=== PATIENT | female | born 1990 | race Caucasian/White ===

== ENCOUNTER 2016-09-21 16:12 | Emergency (ER) | payer OTHER, MEDICAID ==
[~2016-09-21] VITALS: Ht 177.8 cm; Wt 88.5 kg
[~2016-09-21 16:12] MED LIST: ARPZ10T PO; BCP; BSP5T PO; Birth Control Pill; CEPH500C PO; CETI10TA17 PO; CPR500T PO; DCS100C PO; DICY20TA10; DICY20TA57 PO; ESCI20TA2 PO; FERR-47 PO; HYDR-3812 PO; HYDR-757 PO; IBUP-1773 PO; METO-354 PO; OMEP20CA12 PO; ONDA-42 PO; ONDA4TAB8 PO; ONDA8TAB6 PO; ONDA8TAB9 PO; OXYC1TAB87 PO; PANT20TA2 PO; PANT40TA PO; PANT40TA3 PO; PHEN1SUP3 PR; PNV91TAB3 PO; PREN1TAB39 PO; PREN1TAB71 PO; SERT100T PO; SERT50TA PO; TERB250T10; Vitamin B6 PO; ambilify PO; birth control pill
[2016-09-21] MEDS ORDERED: fentaNYL INJECTION 100 MCG/2 ML AMP ONE (16:13)
--- OUTSIDE RECORDS SUMMARY | 2016-09-21 16:17 | XMS REPORT ---
Author Author YESSENIA ROSADO Organization [employer] Address Unknown Phone Unavailable Care Team Providers Care Payable Representative Name Role Phone YESSENIA ROSADO CP Unavailable Allergies No Known Allergies Problems No Known Problems Medications No Known Medications Results No Known Results Summary Purpose [employer]ClinicalWorks Submission
--- OUTSIDE RECORDS SUMMARY | 2016-09-21 16:17 | XMS REPORT ---
Author Author FADI HALL [facility] eClinicalWorks Address Unknown Phone Unavailable Care Team Providers Care Dry Wall Installations Mechanic Name Role Phone AFDI HALL Unavailable Allergies No Known Allergies Problems Problem Type Condition Code Onset Dates Condition Status Assessment Bipolar disorder with moderate depression F31.32 Active Assessment Mood disorder F39 Active Problem Bipolar 2 disorder F31.81 Active Medications No Known Medications Procedures Procedure Coding System Code Date Psych diagnostic evaluation, new patient CPT-4 41925 Dec 09, 2014 Results No Known Results Summary Purpose eClinicalWorks Submission
--- OUTSIDE RECORDS SUMMARY | 2016-09-21 16:17 | XMS REPORT ---
Author Author LIZ SEQUEIRA Organization [employer] Address Unknown Phone Unavailable Care Team Providers Care Chemical Instrumentation Officer Name Role Phone LIZ SEQUEIRA CP Unavailable Allergies, Adverse Reactions, Alerts Substance Reaction Event Type NyQuil hives Drug Allergy Problems Problem Type Condition Code Onset Dates Condition Status Assessment Bipolar 1 disorder with moderate bree F31.12 Active Problem Bipolar 2 disorder F31.81 Active Medications Medication Code System Code Instructions Start Date End Date Status Dosage Lamisil [facility] [address]-55 250 MG Orally Once a day 1 tablet Ibuprofen [facility] [address]-40 200 MG Orally every 6 hrs 1 tablet as needed Dicyclomine HCl [facility] [address]-21 10 MG Orally 3 times a day 1 capsule Zofran ODT [facility] [address]-59 4 MG Orally every 8 hrs July 13, 2014 1 tablet on the tongue and allow to dissolve Promethazine HCl [facility] [address]-36 25 MG Orally every 6 hrs prn Oct 22, 2014 1 tablet as needed Hildebran Carbonate ER [facility] [address]-96 300 MG Orally Once a day at hs Dec 04, 2014 1 tablet Pantoprazole Sodium [facility] [address]-02 20 MG Orally twice a day 1 tablets Seroquel XR [facility] [address]-96 50 MG Orally Once a day at HS Dec 04, 2014 1 tablet in the evening Procedures Procedure Coding System Code Date ASSAY OF FREE THYROXINE CPT-4 20493 Dec 04, 2014 Psych diagnostic evaluation w/medical services, established patient CPT-4 24681 Dec 04, 2014 ASSAY THYROID STIM HORMONE CPT-4 89830 Dec 04, 2014 URINE TEST CPT-4 30680 Dec 04, 2014 Vital Signs Date/Time: Dec 04, 2014 Temperature 98.9 F Weight 209.1 lbs Height 70 in BMI 30.00 Index Blood Pressure Diastolic 80 mmHg Blood Pressure Systolic 120 mmHg Cardiac Monitoring Heart Rate 84 bpm Results No Known Results Summary Purpose eClinicalWorks Submission
--- OUTSIDE RECORDS SUMMARY | 2016-09-21 16:17 | XMS REPORT ---
Author Author NICHELLE DA SILVA [facility] eClinicalWorks Address Unknown Phone Unavailable Care Team Providers Care Sports Journalist Name Role Phone NICHELLE DA SILVA CP Unavailable Allergies No Known Allergies Problems Problem Type Condition Code Onset Dates Condition Status Assessment Bipolar 2 disorder F31.81 Active Problem Bipolar 2 disorder F31.81 Active Medications No Known Medications Procedures Procedure Coding System Code Date Psych diagnostic evaluation, established patient CPT-4 99028 Dec 02, 2014 Results No Known Results Summary Purpose [employer] Submission
--- OUTSIDE RECORDS SUMMARY | 2016-09-21 16:17 | XMS REPORT ---
Author Author YESSENIA ROSADO [facility] eClinicalWorks Address Unknown Phone Unavailable Care Team Providers Care Packing Line Worker Name Role Phone YESSENIA ROSADO CP Unavailable Allergies, Adverse Reactions, Alerts Substance Reaction Event Type NyQuil hives Drug Allergy Problems Problem Type Condition Code Onset Dates Condition Status Problem Nausea R11.0 Active Problem Bipolar 2 disorder F31.81 Active Problem Z33.1 Active Assessment Z33.1 Active Assessment Nausea R11.0 Active Medications Medication Code System Code Instructions Start Date End Date Status Dosage Zofran [facility] [address]-71 8 MG Orally q 12 hours prn nausea Jan 05, 2015 1 tablet Procedures Procedure Coding System Code Date Office Visit, Est Pt., Level 3 CPT-4 12912 Jan 05, 2015 Vital Signs Date/Time: Jan 05, 2015 Temperature 98.1 F Weight 203.0 lbs Height 70 in BMI 29.12 Index Blood Pressure Diastolic 62 mmHg Blood Pressure Systolic 106 mmHg Cardiac Monitoring Heart Rate 88 bpm Results No Known Results Summary Purpose eClinicalWorks Submission
--- OUTSIDE RECORDS SUMMARY | 2016-09-21 16:18 | XMS REPORT ---
Author Author YESSENIA ROSADO [facility] eClinicalWorks Address Unknown Phone Unavailable Care Team Providers Care Data Management Name Role Phone YESSENIA ROSADO CP Unavailable Allergies, Adverse Reactions, Alerts Substance Reaction Event Type NyQuil hives Drug Allergy Problems Problem Type Condition ICD-9 Code Onset Dates Condition Status Assessment Otitis media of both ears 382.9 Active Medications Medication Code System Code Instructions Start Date End Date Status Dosage Ibuprofen [facility] [address]-81 200 MG Orally every 6 hrs 1 tablet as needed Lamisil [facility] [address]-00 250 MG Orally Once a day 1 tablet Pantoprazole Sodium [facility] [address]-35 20 MG Orally twice a day 1 tablets Cephalexin [facility] [address]-32 500 MG Orally 3 times a day Sep 23, 2014 Oct 03, 2014 1 capsule Procedures Procedure Coding System Code Date Office Visit, Est Pt., Level 3 CPT-4 17790 Sep 23, 2014 Vital Signs Date/Time: Sep 23, 2014 Temperature 99.1 F Weight 202.7 lbs Height 70 in BMI 29.08 Index Blood Pressure Diastolic 76 mmHg Blood Pressure Systolic 104 mmHg Cardiac Monitoring Heart Rate 76 bpm Results No Known Results Summary Purpose [employer]ClinicalWorks Submission
--- OUTSIDE RECORDS SUMMARY | 2016-09-21 16:18 | XMS REPORT ---
Author Author YSESENIA ROSADO [facility] Address [address] [place] [address] Care Team Providers Care Human Resources Trainer Name Role Phone YESSENIA ROSADO Unavailable PROBLEMS Type Condition ICD9-CM Code [id number] Code Onset Dates Condition Status SNOMED Code Problem Z33.1 Active 44637327 Problem Nausea R11.0 Active 473760155 Problem Bipolar 2 disorder F31.81 Active 28478596 ALLERGIES No Known Allergies SOCIAL HISTORY No smoking Hx information available PLAN OF CARE VITAL SIGNS MEDICATIONS No Known Medications RESULTS No Results PROCEDURES Procedure Date Ordered Related Diagnosis Body Site FLUARIX QUAD P-FREE 3 AND UP .50 2015Dec 13, 2015 SINGLE IMMUNIZATION ADMIN Dec 13, 2015 IMMUNIZATIONS Vaccine Route Administration Date Status FLUARIX QUAD P-FREE 3 AND UP .50 2015 IM Intramuscular Dec 13, 2015 Administered
--- OUTSIDE RECORDS SUMMARY | 2016-09-21 16:18 | XMS REPORT ---
Author Author YESSENIA ROSADO Organization eClinicalWorks Address Unknown Phone Unavailable Care Team Providers Care Acetone Recovery Worker Name Role Phone YESSENIA ROSADO CP Unavailable Allergies No Known Allergies Problems Problem Type Condition Code Onset Dates Condition Status Problem Bipolar 2 disorder F31.81 Active Medications Medication Code System Code Instructions Start Date End Date Status Dosage Promethazine HCl [facility] [address]-63 25 MG Orally every 6 hrs prn Oct 22, 2014 1 tablet as needed Results No Known Results Summary Purpose eClinicalWorks Submission
--- OUTSIDE RECORDS SUMMARY | 2016-09-21 16:18 | XMS REPORT ---
Author Author YESSENIA ROSADO [facility] eClinicalWorks Address Unknown Phone Unavailable Care Team Providers Care Braker Passenger Train Name Role Phone YESSENIA ROSADO CP Unavailable Allergies, Adverse Reactions, Alerts Substance Reaction Event Type NyQuil hives Drug Allergy Problems Problem Type Condition ICD-9 Code Onset Dates Condition Status Assessment Pyelonephritis 590.80 Active Assessment Nausea 787.02 Active Assessment Dysuria 788.1 Active Medications Medication Code System Code Instructions Start Date End Date Status Dosage Pantoprazole Sodium [facility] [address]-76 20 MG Orally twice a day 1 tablets Cipro [facility] [address]-86 500 MG Orally Twice a day Oct 22, 2014 Nov 01, 2014 1 tablet Lamisil [facility] [address]-89 250 MG Orally Once a day 1 tablet Promethazine HCl [facility] [address]-88 25 MG Orally every 6 hrs prn Oct 22, 2014 1 tablet as needed Procedures Procedure Coding System Code Date URINE CULTURE/COLONY COUNT CPT-4 56757 Oct 22, 2014 Office Visit, Est Pt., Level 3 CPT-4 13384 Oct 22, 2014 URINALYSIS, AUTO, W/O SCOPE CPT-4 03678 Oct 22, 2014 Vital Signs Date/Time: Oct 22, 2014 Temperature 97.7 F Weight 198.0 lbs Height 70 in BMI 28.41 Index Blood Pressure Diastolic 72 mmHg Blood Pressure Systolic 102 mmHg Cardiac Monitoring Heart Rate 74 bpm Results Name Result Date Reference Range Unit Abnormality Flag UA W/CULTURE IF INDICATED (IN HOUSE) Summary Purpose eClinicalWorks Submission
--- OUTSIDE RECORDS SUMMARY | 2016-09-21 16:19 | XMS REPORT ---
Author Author YESSENIA ROSADO Organization eClinicalWorks Address Unknown Phone Unavailable Care Team Providers Care Paving Crew Foreman Name Role Phone YESSENIA ROSADO CP Unavailable Allergies, Adverse Reactions, Alerts Substance Reaction Event Type NyQuil hives Drug Allergy Problems Problem Type Condition Code Onset Dates Condition Status Assessment Onychia of toe L03.039 Active Assessment Bipolar 2 disorder F31.81 Active Problem Bipolar 2 disorder F31.81 Active Medications Medication Code System Code Instructions Start Date End Date Status Dosage Lamisil [facility] [address]-58 250 MG Orally Once a day 1 tablet Pantoprazole Sodium [facility] [address]-72 20 MG Orally twice a day 1 tablets Promethazine HCl [facility] [address]-47 25 MG Orally every 6 hrs prn Oct 22, 2014 1 tablet as needed Procedures Procedure Coding System Code Date VENIPUNCT, ROUTINE* CPT-4 80826 Dec 02, 2014 Office Visit, Est Pt., Level 3 CPT-4 04791 Dec 02, 2014 COMPREHEN METABOLIC PANEL CPT-4 63368 Dec 02, 2014 Vital Signs Date/Time: Dec 02, 2014 Temperature 98.3 F Weight 206.6 lbs Height 70 in BMI 29.64 Index Blood Pressure Diastolic 74 mmHg Blood Pressure Systolic 106 mmHg Cardiac Monitoring Heart Rate 72 bpm Results Name Result Date Reference Range Unit Abnormality Flag ROUTINE VENIPUNCTURE CMP Summary Purpose eClinicalWorks Submission
--- OUTSIDE RECORDS SUMMARY | 2016-09-21 16:19 | XMS REPORT | Continuity of Care Document ---
Author Author [facility] Organization [facility] Address Unknown Phone Unavailable Allergies Active Description Code Type Severity Reaction Onset Reported/Identified Relationship to Patient Clinical Status Yes DAYQUIL DAYQUIL Unknown N/A 11/04/2009 Yes dextromethorphan [id number] Drug Allergy Unknown N/A 11/04/2009 Yes doxylamine [id number] Drug Allergy Unknown N/A 11/04/2009 Yes pseudoephedrine [id number] Drug Allergy Unknown N/A 11/04/2009 Medications Problems Date Dx Coded Attending Type Code Diagnosis Diagnosed By 11/04/2009 Ot 574.10 03/08/2010 Ot 565.0 ANAL FISSURE 03/08/2010 Ot 578.1 BLOOD IN STOOL 11/05/2010 Ot 599.0 URIN TRACT INFECTION NOS 11/05/2010 Ot 646.63 INFECTION-ANTEPARTUM 11/14/2010 Ot 285.9 ANEMIA NOS 11/14/2010 Ot 648.21 ANEMIA-DELIVERED 11/14/2010 Ot 652.31 TRANSVER/OBLIQ LIE-DELIV 11/14/2010 Ot 656.61 EXCESS GRTH-DELIV 11/14/2010 Ot 661.21 UTERINE INERT NEC-DELIV 11/14/2010 Ot 663.11 CORD AROUND NECK-DELIVER 11/14/2010 Ot V27.0 DELIVER-SINGLE LIVEBORN 03/07/2012 Ot 787.03 VOMITING ALONE 03/07/2012 Ot 787.91 DIARRHEA 03/07/2012 Ot 789.06 ABDOMINAL PAIN, EPIGASTRIC 06/25/2012 BETTY PHILLIPS MD Ot 599.0 URIN TRACT INFECTION NOS 06/25/2012 BETTY PHILLIPS MD Ot 789.09 ABDOMINAL PAIN, OTHER SPECIFIED SITE 09/22/2012 ALICIA CORTEZ Ot 276.51 DEHYDRATION 09/22/2012 ALICIA CORTEZ Ot 599.0 URIN TRACT INFECTION NOS 09/22/2012 ALICIA CORTEZ Ot 643.93 VOMIT OF PG NOS-ANTEPART 09/22/2012 ALICIA CORTEZ Ot 646.63 INFECTION-ANTEPARTUM 01/28/2013 REZA URIAS MD Ot 643.03 MILD HYPEREMESIS-ANTEPAR 01/28/2013 REZA URIAS MD Ot V04.81 ND FOR PROPHYLACTIC VACCIN AND INOCULATI 01/28/2013 REZA URIAS MD Ot V06.1 [id number], COMBINED [ 04/11/2013 EZE DAO DO Ot 285.1 AC POSTHEMORRHAG ANEMIA 04/11/2013 EZE DAO DO Ot 296.80 BIPOLAR DISORDER, UNSPECIFIED 04/11/2013 EZE DAO DO Ot 648.22 ANEMIA-DELIVERED W P/P 04/11/2013 EZE DAO DO Ot 648.41 MENTAL DISORDER-DELIVER 04/11/2013 EZE DAO DO Ot 654.21 PREV DELIVRY W/ OR W/O MENT ANT 04/11/2013 EZE DAO DO Ot 663.11 CORD AROUND NECK-DELIVER 04/11/2013 EZE DAO DO Ot V27.0 DELIVER-SINGLE LIVEBORN 06/10/2014 Ot 789.01 06/10/2014 Ot 789.01 06/10/2014 Ot 788.41 06/10/2014 EZE DAO DO Ot 654.23 06/10/2014 EZE DAO DO Ot V72.63 06/10/2014 EZE DAO DO Ot V74.8 07/24/2014 EZE DAO DO Ot 654.23 07/24/2014 EZE DAO DO Ot V72.63 07/24/2014 EZE DAO DO Ot V74.8 07/24/2014 TON SUNSHINE IRRIGATIONIST DESIGNER Ot 530.81 ESOPHAGEAL REFLUX 07/24/2014 TON SUNSHINE IRRIGATIONIST DESIGNER Ot 789.09 ABDOMINAL PAIN, OTHER SPECIFIED SITE 07/27/2014 Ot 789.01 07/27/2014 Ot 789.01 07/27/2014 Ot 788.41 07/27/2014 EZE DAO DO Ot 654.23 07/27/2014 DAO EZE C Ot V72.63 07/27/2014 SYLWIA CARRANZA EZE C Ot V74.8 08/23/2014 Ot 789.01 08/23/2014 Ot 789.01 08/23/2014 Ot 788.41 08/23/2014 DAO EZE CARRANZA Ot 654.23 08/23/2014 SYLWIA CARRANZAEZE Ot V72.63 08/23/2014 SYLWIA CARRANZAEZE Ot V74.8 08/23/2014 TON SUNSHINE IRRIGATIONIST DESIGNER Ot 824.8 FX ANKLE NOS-CLOSED 08/23/2014 TON SUNSHINE IRRIGATIONIST DESIGNER Ot 845.00 SPRAIN OF ANKLE NOS 08/23/2014 TON SUNSHINE IRRIGATIONIST DESIGNER Ot 959.7 LOWER LEG INJURY NOS 08/23/2014 TON SUNSHINE IRRIGATIONIST DESIGNER Ot E000.8 OTHER EXTERNAL CAUSE STATUS 08/23/2014 TON SUNSHINE IRRIGATIONIST DESIGNER Ot E927.0 OVEREXERTION FROM SUDDEN STRENUOUS MOVEM 06/06/2015 EZE DAO DO Ot 654.23 PREV DELIVERY, ANTEPARTUM COND 06/06/2015 EZE DAO DO Ot V72.63 PRE-PROCEDURAL LABORATORY EXAMINATION 06/06/2015 EZE DAO DO Ot V74.8 SCREEN-BACTERIAL DIS NEC 07/19/2015 EZE DAO DO Ot 654.23 PREV DELIVERY, ANTEPARTUM COND 07/19/2015 EZE DAO DO Ot V72.63 PRE-PROCEDURAL LABORATORY EXAMINATION 07/19/2015 EZE DAO DO Ot V74.8 SCREEN-BACTERIAL DIS NEC 07/20/2015 EZE DAO DO Ot O34.21 MATERNAL CARE FOR SCAR FROM PREVIOUS GIOVANNI 07/20/2015 EZE DAO DO Ot Z01.818 ENCOUNTER FOR OTHER PREPROCEDURAL EXAMIN 07/20/2015 EZE DAO DO Ot Z11.2 ENCOUNTER FOR SCREENING FOR OTHER BACTER 07/20/2015 EZE DAO DO Ot Z3A.00 WEEKS OF GESTATION OF NOT SPEC 08/03/2015 EZE DAO DO Ot 654.23 PREV DELIVERY, ANTEPARTUM COND 08/03/2015 SYLWIA CARRANZA EZE C Ot V72.63 PRE-PROCEDURAL LABORATORY EXAMINATION 08/03/2015 DAO DO EZE C Ot V74.8 SCREEN-BACTERIAL DIS NEC 08/03/2015 DAO DO EZE C Ot 654.23 PREV DELIVERY, ANTEPARTUM COND 08/03/2015 DAO DO EZE C Ot V72.63 PRE-PROCEDURAL LABORATORY EXAMINATION 08/03/2015 DAO DO EZE C Ot V74.8 SCREEN-BACTERIAL DIS NEC 08/03/2015 DAO DO EZE C Ot 654.23 PREV DELIVERY, ANTEPARTUM COND 08/03/2015 DAO DO EZE C Ot V72.63 PRE-PROCEDURAL LABORATORY EXAMINATION 08/03/2015 DAO DO EZE C Ot V74.8 SCREEN-BACTERIAL DIS NEC 08/04/2015 DAO DO EZE C Ot 654.23 PREV DELIVERY, ANTEPARTUM COND 08/04/2015 DAO DO EZE C Ot V72.63 PRE-PROCEDURAL LABORATORY EXAMINATION 08/04/2015 DAO DO EZE C Ot V74.8 SCREEN-BACTERIAL DIS NEC 08/04/2015 DAO DO EZE C Ot 654.23 PREV DELIVERY, ANTEPARTUM COND 08/04/2015 DAO DO EZE C Ot V72.63 PRE-PROCEDURAL LABORATORY EXAMINATION 08/04/2015 DAO DO EZE C Ot V74.8 SCREEN-BACTERIAL DIS NEC 08/05/2015 DAO DO ZEE C Ot D62 ACUTE POSTHEMORRHAGIC ANEMIA 08/05/2015 SRAVANTHI DAO DOA C Ot O34.21 MATERNAL CARE FOR SCAR FROM PREVIOUS GIOVANNI 08/05/2015 SYLWIA DO EZE C Ot O90.81 ANEMIA OF THE PUERPERIUM 08/05/2015 SYLWIA DO EZE C Ot Z37.0 SINGLE LIVE 08/05/2015 SRAVANTHI DAO DOA C Ot Z3A.39 39 WEEKS GESTATION OF 09/08/2015 DAO DO EZE C Ot 654.23 PREV DELIVERY, ANTEPARTUM COND 09/08/2015 DAO DO EZE C Ot V72.63 PRE-PROCEDURAL LABORATORY EXAMINATION 09/08/2015 SYLWIA DO EZE C Ot V74.8 SCREEN-BACTERIAL DIS NEC 09/09/2015 EZE DAO DO Ot 654.23 PREV DELIVERY, ANTEPARTUM COND 09/09/2015 EZE DAO DO Ot V72.63 PRE-PROCEDURAL LABORATORY EXAMINATION 09/09/2015 EZE DAO DO Ot V74.8 SCREEN-BACTERIAL DIS NEC 09/16/2015 EZE DAO DO Ot 654.23 PREV DELIVERY, ANTEPARTUM COND 09/16/2015 EZE DAO DO Ot V72.63 PRE-PROCEDURAL LABORATORY EXAMINATION 09/16/2015 EZE DAO DO Ot V74.8 SCREEN-BACTERIAL DIS NEC 07/21/2016 EZE DAO DO Ot 654.23 PREV DELIVERY, ANTEPARTUM COND 07/21/2016 EZE DAO DO Ot V72.63 PRE-PROCEDURAL LABORATORY EXAMINATION 07/21/2016 EZE DAO DO Ot V74.8 SCREEN-BACTERIAL DIS NEC Procedures Code Description Performed By Performed On 72.79 VACUUM EXTRACT DEL NEC 11/11/2010 74.1 LOW CERVICAL 11/11/2010 99.77 APPL/ADMIN OF AN ADHESION BARRIER SUBSTA 11/11/2010 74.1 LOW CERVICAL 04/08/2013 [id number] EXTRACTION OF POC, LOW CERVICAL, OPEN AP 08/03/2015 Results Encounters ACCT No. Visit Date/Time Discharge Status Pt. Type Provider Facility Loc./Unit Complaint [id number] 08/03/2015 07:42:00 2015 14:00:00 DIS Outpatient EZE DAO DO [facility] WS [id number] 07/20/2015 09:11:00 2015 09:40:00 DIS Outpatient EZE DAO DO [facility] PREOP [id number] 08/23/2014 20:00:00 2014 21:10:00 DIS Emergency TON SUNSHINE APRN [facility] ER RIGHT ANKLE PAIN/SWOLLEN [id number] 07/24/2014 10:28:00 2014 12:02:00 DIS Emergency TON SUNSHINE APRN [facility] ER ABD PAIN/CRAMPING BLOOD IN STOOL [id number] 04/08/2013 07:05:00 2013 12:00:00 DIS Inpatient EZE DAO DO [facility] WS PREVIOUS SECTION [id number] 04/02/2013 11:49:00 2013 23:59:59 CLS Outpatient EZE DAO DO [facility] PREOP PREVIOUS SECTION [id number] 01/28/2013 17:22:00 2012 20:25:00 DIS Outpatient REZA URIAS MD [facility] WSo NAUSEA, VOMITTING [id number] 09/22/2012 16:24:00 2012 19:06:00 DIS Emergency ALICIA CORTEZ [facility] ER 12 WKS; VOMITING [id number] 06/25/2012 17:27:00 2012 21:37:00 DIS Emergency BETTY PHILLIPS MD [facility] ER ABD PAIN,FEVER [id number] 06/10/2014 09:37:00 Document Registration [id number] 06/10/2014 09:37:00 Document Registration [id number] 06/10/2014 09:37:00 Document Registration [id number] 06/10/2014 09:37:00 Document Registration [id number] 03/07/2012 10:01:00 Document Registration [id number] 11/05/2010 08:14:00 Document Registration [id number] 03/07/2010 23:55:00 Document Registration [id number] 11/04/2009 10:25:00 Document Registration
[2016-09-21] MEDS ORDERED: fentaNYL INJECTION 100 MCG/2 ML AMP IVP ONE ×3 (16:30→17:00)
[2016-09-21 16:31] LABS: BASOPHILS # (AUTO) 0.1 10^3/uL (0.0-0.1); BASOPHILS % (AUTO) 0 % (0-10); EOSINOPHILS # (AUTO) 0.1 10^3/uL (0.0-0.3); EOSINOPHILS % (AUTO) 1 % (0-10); LYMPHOCYTES # (AUTO) 5.7 X 10^3 (1.0-4.0); LYMPHOCYTES % (AUTO) 35 % (12-44); MEAN CORPUSCULAR HEMOGLOBIN 29 PG (25-34); MEAN CORPUSCULAR HGB CONC 33 G/DL (32-36); MEAN CORPUSCULAR VOLUME 88 FL (80-99); MEAN PLATELET VOLUME 10.8 FL (7.4-10.4); MONOCYTES # (AUTO) 0.9 X 10^3 (0.0-1.0); MONOCYTES % (AUTO) 6 % (0-12); NEUTROPHILS # (AUTO) 9.4 X 10^3 (1.8-7.8); NEUTROPHILS % (AUTO) 58 % (42-75); PLATELET COUNT 210 10^3/uL (130-400); RED BLOOD COUNT 4.29 10^6/uL (4.35-5.85); RED CELL DISTRIBUTION WIDTH 13.4 % (10.0-14.5); WHITE BLOOD COUNT 16.1 10^3/uL (4.3-11.0)
[2016-09-21 16:44] LABS: ALANINE AMINOTRANSFERASE 12 U/L (0-55); ANION GAP 8 MMOL/L (5-14); ASPARTATE AMINO TRANSFERASE 18 U/L (5-34); BILIRUBIN,TOTAL 0.5 MG/DL (0.1-1.0); BLOOD UREA NITROGEN 11 MG/DL (7-18); BUN/CREATININE RATIO 15; CALCIUM 9.1 MG/DL (8.5-10.1); CARBON DIOXIDE 25 MMOL/L (21-32); CHLORIDE 108 MMOL/L (98-107); CREATININE SERUM 0.71 MG/DL (0.60-1.30); GFR ESTIMATED > 60; GLUCOSE 96 MG/DL (70-105); POTASSIUM 3.7 MMOL/L (3.6-5.0); SODIUM 141 MMOL/L (135-145); TOTAL PROTEIN 6.9 GM/DL (6.4-8.2)
[2016-09-21 16:53] LABS: BAND NEUTROPHILS 1 %; BASOPHILS % (MANUAL) 0 %; EOSINOPHILS % (MANUAL) 1 %; LYMPHOCYTES % (MANUAL) 37 %; NEUTROPHILS % (MANUAL) 59 %
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
[2016-09-21] MEDS ORDERED: LIDOCAINE 2% 20 ML (XYLOCAINE) VIAL INJ ONE (17:15)
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
[2016-09-21] MEDS ORDERED: IOHEXOL 350 MG/ML 100 ML (OMNIPAQUE 350) VIAL IV ONE (17:45)
[2016-09-21] MEDS ORDERED: NS 100 ML (IVPB) BAG IV ONE (17:45)
[2016-09-21] MEDS ORDERED: morphine INJ 10 MG/ML 1ML (SYR OR VIAL) IVP ONE ×2 (18:00→19:00)
[2016-09-21] MEDS ORDERED: ONDANSETRON 4 MG/2 ML (SDV) Z0FRAN ONE (18:25)
[2016-09-21] MEDS ORDERED: ONDANSETRON 4 MG/2 ML (SDV) Z0FRAN IVP ONE (18:30)
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
[2016-09-21] MEDS ORDERED: HYDR-757 PO (19:23)
[2016-09-21 19:39] VITALS: BP 103/77
== END 2016-09-21 19:43 | disposition home or self-care (01) ==
LOC: EDUNIT# 16:12 → ER 16:14
DX: S01.01XA Laceration without foreign body of scalp, initial encounter (principal); S29.9XXA Unspecified injury of thorax, initial encounter; S19.9XXA Unspecified injury of neck, initial encounter; V43.52XA Car driver injured in collision with other type car in traffic accident, initial encounter; W22.11XA Striking against or struck by driver side automobile airbag, initial encounter; Y92.414 Local residential or business street as the place of occurrence of the external cause; Y99.8 Other external cause status
CPT/HCPCS: 36415; 70450; 71010; 71260; 72125; 72141; 72146; 74177; 80053; 84703; 85007; 85027; 99285

== ENCOUNTER 2017-09-20 15:52 | Emergency (ER) | payer MEDICAID, OTHER ==
[~2017-09-20] VITALS: Ht 177.8 cm; Wt 88.5 kg
[~2017-09-20 15:52] MED LIST changes: +ACHD5005 PO; -HYDR-3812 PO
[2017-09-20] MEDS ORDERED: METH-313 PO (16:05)
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
[2017-09-20] MEDS ORDERED: MELO15TA39 PO (16:12)
[2017-09-20] MEDS ORDERED: LURA40TA3 PO (16:12)
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
[2017-09-20 16:47] VITALS: BP 130/85
== END 2017-09-20 16:47 | disposition home or self-care (01) ==
LOC: EDUNIT# 15:52 → ER 15:54
DX: S43.402A Unspecified sprain of left shoulder joint, initial encounter (principal); K21.9 Gastro-esophageal reflux disease without esophagitis; F31.9 Bipolar disorder, unspecified; Z88.8 Allergy status to other drugs, medicaments and biological substances; Z87.19 Personal history of other diseases of the digestive system; Z87.891 Personal history of nicotine dependence; Z82.49 Family history of ischemic heart disease and other diseases of the circulatory system; Z87.59 Personal history of other complications of pregnancy, childbirth and the puerperium; Z86.19 Personal history of other infectious and parasitic diseases; V49.40XA Driver injured in collision with unspecified motor vehicles in traffic accident, initial encounter; Y92.410 Unspecified street and highway as the place of occurrence of the external cause
CPT/HCPCS: 73030

== ENCOUNTER 2021-01-13 17:19 | Emergency (ER) | payer OTHER, MEDICAID ==
[~2021-01-13] VITALS: Ht 177.8 cm; Wt 95.6 kg
[~2021-01-13 17:19] MED LIST changes: +HYDR-4226 PO; +LURA40TA3 PO; +MELO15TA39 PO; +METH-313 PO; -PANT40TA3 PO; +PANT40TA52 PO
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
[2021-01-13 19:06] VITALS: BP 123/84
== END 2021-01-13 19:10 | disposition home or self-care (01) ==
LOC: EDUNIT# 17:19 → ER 17:21
DX: S09.90XA Unspecified injury of head, initial encounter (principal); S00.83XA Contusion of other part of head, initial encounter; F31.9 Bipolar disorder, unspecified; Z87.820 Personal history of traumatic brain injury; Z79.899 Other long term (current) drug therapy; V89.2XXA Person injured in unspecified motor-vehicle accident, traffic, initial encounter
CPT/HCPCS: 70450; 71045; 72125; 99283